=== PATIENT | male | born 1955 | race Caucasian/White ===

== ENCOUNTER 2023-06-06 07:13 | Outpatient (CLI) | payer OTHER ==
[~2023-06-06 07:13] MED LIST: ANTIACID; ATENOLOL25 MG; ATENOLOL50 MG PO; DICLOFENAC EPO1 EACH TD; KLONOPIN0.25 MG/TA; LIPITOR40 MG; NAPROXEN500 MG PO; PREGABALIN50 MG PO; TRAMADOL HCL50 MG PO; VASOTEC20 M1 PO; VASOTEC5 MG; XOPENEX0.63 MG/3 IH; ZYNCOF 20-400120 ML PO; [UNRECOGNIZED DRUG - OTHER]
== END 2023-06-06 07:14 | disposition home or self-care (01) ==
LOC: NUCLEAR 07:13
PROVIDERS: ATTEND Internal Medicine
DX: I20.9 Angina pectoris, unspecified (principal)
CPT/HCPCS: 78452; 93017; A9500; J0153